=== PATIENT | female | born 1990 | race African-American/Black ===

== ENCOUNTER 2017-04-27 14:55 | Emergency (ER) | payer SELFPAY ==
[2017-04-27] MEDS ORDERED: HYDROcodone/Acetaminophen 5/325 mg Tablet ONE (15:28)
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
== END 2017-04-27 16:40 | disposition home or self-care (01) ==
LOC: NAV ERS 14:55
DX: S16.1XXA Strain of muscle, fascia and tendon at neck level, initial encounter (principal); S00.83XA Contusion of other part of head, initial encounter; Y04.2XXA Assault by strike against or bumped into by another person, initial encounter
CPT/HCPCS: 72125